=== PATIENT | male | born 1970 | race Caucasian/White ===

== ENCOUNTER 2016-12-08 11:15 | Inpatient (IN) | payer MEDICAID, OTHER ==
[2016-12-08 11:16] VITALS: BMI 37.8
[2016-12-08] MEDS ORDERED: Albuterol-Ipratrop 3 mg / 0.5 (3 ml) UD INH STA (12:19)
--- NOTE | 2016-12-08 12:22 | C.PDOC ---
History Of Present Illness 46 year old male, whose PMHx includes Anxiety, Bipolar Disorder and Depression, presents to the ED for psychiatric evaluation. Patient complains of worsening depression, racing thoughts, and higher anxiety levels than usual. Patient notes he has not been compliant with his medication and reports he has been having increased family problems. Patient reports he had suicidal ideation yesterday but denies such ideation today. Patient denies suicidal plan/ homicidal ideation and has no physical complaints at this time. Time Seen by Provider: 12/08/16 11:31 Chief Complaint (Nursing): Psychiatric Evaluation History Per: Patient History/Exam Limitations: no limitations Onset/Duration Of Symptoms: Hrs Current Symptoms Are (Timing): Still Present Suicide/Self Injury Attempted (Context): None Modifying Factor(s): None Associated Symptoms: Anxiety, Depression. denies: Suicidal Thoughts, Suicidal Plan Involuntary Hold By: None Recent travel outside of the [place]: No Additional History Per: Patient Past Medical History Reviewed: Historical Data, Nursing Documentation, Vital Signs Vital Signs: Last Vital Signs Temp 97.8 F 12/08/16 11:22 Pulse 105 H 12/08/16 11:22 Resp 20 12/08/16 11:22 BP 163/100 H 12/08/16 11:22 Pulse Ox 97 12/08/16 13:40 - Medical History PMH: Anxiety, Asthma (has home nebulizer machine), Bipolar Disorder, Depression , HTN, Sleep Apnea Surgical History: No Surg Hx - [facility] Procedures C-REINA EXC MAX SINUS LES (08/05/14) CLOSURE SKIN & SUBCUTANEOUS NEC (06/28/04) ETHMOIDECTOMY (08/05/14) NEBULIZER THERAPY (10/12/04) RADICAL MAXILLARY ANTROT (08/05/14) SPHENOIDECTOMY (08/05/14) TETANUS TOXOID ADMINIST (06/28/04) Family History: States: Unknown Family Hx - Social History Hx Alcohol Use: No Hx Substance Use: No - Immunization History Hx Tetanus Toxoid Vaccination: No Hx Influenza Vaccination: No Hx Pneumococcal Vaccination: No Review Of Systems Psych: Positive for: Anxiety, Depression. Negative for: Suicidal ideation Physical Exam - Physical Exam Appears: Non-toxic, No Acute Distress, Other (overweight, mildly anxious ) Skin: Normal Color, Warm, Dry Head: Atraumatic, Normacephalic Eye(s): bilateral: Normal Inspection Oral Mucosa: Moist Neck: Supple Chest: Symmetrical, No Deformity, No Tenderness Cardiovascular: Rhythm Regular, No Murmur Respiratory: No Rales, No Rhonchi, Wheezing (mild b/l expiratory wheezing in lower lungs [place] ) Extremity: Normal ROM, Capillary Refill (less than 2 seconds ) Neurological/Psych: Oriented x3, Normal Speech, Normal Cognition Gait: Steady ED Course And Treatment - Laboratory Results Result Diagrams: 12/08/16 12:29 12/08/16 12:29 O2 Sat by Pulse Oximetry: 97 (on RA ) Pulse Ox Interpretation: Normal Medical Decision Making Medical Decision Making: Progress: Bloodwork, urinalysis ordered and reviewed. Albuterol INH administered. Case discussed with stock worker and deliverer, who will evaluate patient at bedside. 137 pm pt medically cleared for psych eval. Disposition Discussed With Dr.: Carlos Holder Doctor Will See Patient In The: Hospital - Disposition Disposition Time: 13:39 Condition: STABLE - Clinical Impression Clinical Impression: Depression - PA / TOOL AND MACHINE MAINTAINER / Resident Statement MD/DO has reviewed & agrees with the documentation as recorded. - Scribe Statement The provider has reviewed the documentation as recorded by the Scribe (Savannah Patel) All medical record entries made by the Scribe were at my direction and personally dictated by me. I have reviewed the chart and agree that the record accurately reflects my personal performance of the history, physical exam, medical decision making, and the department course for this patient. I have also personally directed, reviewed, and agree with the discharge instructions and disposition. Decision To Admit - Pt Status Changed To: Hospital Disposition Of: Inpatient - Admit Certification Admit to Inpatient:: After my assessment, the patient will require hospitalization for at least two midnights. This is because of the severity of symptoms shown, intensity of services needed, and/or the medical risk in this patient being treated as an outpatient. - InPatient: Physician Admission Certification: I certify that this patient requires 2 or more midnights of care for the following reason:: psych eval - . Bed Request Type: Psychiatry Admitting Physician: Carlos Holder Patient Diagnosis: Depression
[2016-12-08 12:33] LABS: BASO # 0.1 K/uL (0.0-0.2); BASO % 0.9 % (0.0-2.0); EOS # 0.8 K/uL (0.0-0.7); EOS % 9.1 % (0.0-4.0); HEMATOCRIT 44.2 % (35.0-51.0); LYMPH # 2.1 K/uL (1.0-4.3); LYMPH % 23.7 % (20.0-40.0); MEAN CELL VOLUME 93.1 fL (80.0-94.0); MEAN CORPUSCULAR HEMOGLOBIN 31.2 pg (27.0-31.0); MEAN CORPUSCULAR HGB CONC 33.5 g/dL (33.0-37.0); MEAN PLATELET VOLUME 8.9 fL (7.2-11.7); MONO # 0.5 K/uL (0.0-0.8); MONO % 5.9 % (0.0-10.0); NRBC % 0.1 % (0.0-2.0); RED CELL DISTRIBUTION WIDTH 13.4 % (11.5-14.5)
[2016-12-08 12:37] LABS: RBC URINE 3 /hpf (0-3); URINE BILIRUBIN NEGATIVE (NEGATIVE); URINE BLOOD NEGATIVE (NEGATIVE); URINE COLOR Yellow (YELLOW); URINE GLUCOSE (UA) NORMAL (Normal); URINE KETONE NEGATIVE (NEGATIVE); URINE LEUKOCYTE ESTERASE NEG Leu/uL (Negative); URINE PROTEIN 1+ mg/dL (NEGATIVE); WBC URINE 1 /hpf (0-5)
[2016-12-08 12:43] LABS: CHLORIDE 100 mmol/L (98-107)
[2016-12-08 12:44] LABS: POTASSIUM 3.5 mmol/L (3.6-5.2); SODIUM 140 mmol/L (132-148)
[2016-12-08 12:46] LABS: ALB/GLOB RATIO 1.1 (1.0-2.1); ALKALINE PHOSPHATASE 89 U/L (38-126); AST/SGOT 18 U/L (17-59); BILIRUBIN,TOTAL 0.6 mg/dL (0.2-1.3); BLOOD UREA NITROGEN 14 mg/dL (9-20); CARBON DIOXIDE 26 mmol/L (22-30); GFR AFRICAN-AMERICAN > 60; TOTAL PROTEIN 8.3 g/dL (6.3-8.3)
[2016-12-08 12:47] LABS: ALCOHOL SERUM < 10 mg/dl (0-10); ALT/SGPT 17 U/L (21-72); CALCIUM 9.3 mg/dl (8.6-10.4); GLUCOSE,RANDOM 131 mg/dL (75-110)
[2016-12-08] MEDS ORDERED: Albuterol-Ipratrop 3 mg / 0.5 (3 ml) UD ONE (13:11)
[2016-12-08] MEDS ORDERED: Albuterol-Ipratrop 20 mcg/actuation (4 g) INH PRN (14:59)
[2016-12-08] MEDS: Divalproex 500 mg DR Tab PO SCH (17:27)
[2016-12-08] MEDS: Albuterol HFA 90 mcg/actuation (8 g) INH PRN (18:15)
--- NOTE | 2016-12-08 18:42 | PCM.BM ---
<Margarito Roque - Last Filed: 12/08/16 18:40> Treatment Plan Problems - Problems identified on initial assessmt Depression Date Initiated: 12/08/16 Time Initiated: 14:45 Assessment reference: NA Status: Active Treatment assets and liabiliti Patient Assests: ADL independent, good interpersonal skills Patient Liabilities: relationship conflicts (Angry at past relationships), substance abuse, medical problems - Milieu Protocol Maintain good personal hygiene: daily Encourage regular showers, daily Remind patient to perform daily oral care Maintain personal safety: every shift Educate patient to report safety concerns to staff, every shift Monitor environment for contraband/sharps Medication safety: Monitor for expected outcome, potential side effects: every shift, Assess barriers to learning: every shift, Assess readiness for medication education: every shift <Davida Solis - Last Filed: 12/09/16 11:24> Family Contact Family involvement: Family/SO is involved Family contact: Patient declines to allow family contact at present - Goals for Treatment Patient goals for treatment: "I want to go to the [facility]" Discharge/Continuing Care - Education Needs Education Needs: Patient Medication, Patient Coping Skills - Discharge Discharge Criteria: Tolerates medication w/o severe side effects, Reduction of target symptoms Discharge to:: Home - Treatment Team Participation Discussed with Family/SO: Yes Was Patient/Family/SO present at Treatment Team Meeting: Yes <Carlos Holder - Last Filed: 12/09/16 17:05> - Diagnosis (1) Bipolar 1 disorder, depressed Status: Acute Interventions: Assess/at just medications daily and/or as needed See patient on and individual [id number] per week to assess status of hallucinations and delusions Discussed risks, benefits, side effects and alternatives of medications. 12/09/16 17:04 (2) Opiate abuse, episodic Status: Acute Interventions: Assess 7x/week regarding severity of withdrawal Educated regarding risks, benefits, side effects and alternatives of medications Used motivational interview for abstinence Used CBT for relapse prevention Medication management for withdrawal symptoms Encouraged medication assisted treatment 12/09/16 17:05
[2016-12-09] MEDS: Albuterol HFA 90 mcg/actuation (8 g) INH PRN ×3 (00:36→17:46)
[2016-12-09] MEDS: Divalproex 500 mg DR Tab PO SCH ×2 (10:11→17:45)
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
[2016-12-10] MEDS: Albuterol HFA 90 mcg/actuation (8 g) INH PRN (03:23)
[2016-12-10] MEDS: Albuterol-Ipratrop 20 mcg/actuation (4 g) INH SCH ×3 (08:24→19:44)
[2016-12-10] MEDS: Divalproex 500 mg DR Tab PO SCH ×2 (09:24→17:19)
--- NOTE | 2016-12-10 12:35 | PCM.PYCHPN ---
Psychiatric Progress Note - Psychiatric Progress Note Patient seen today, length of contact: 15 minutes Patient Chief Complaint: I'm feeling little better Problems Identified/Issues Discussed: Patient seen. Chart reviewed. Case discussed with the staff. Issues related to illness and treatment were discussed with the patient. Reported compliant with treatment with no adverse affects. Tolerating treatment very well. Reported feeling little better with the treatment. Aftercare discussed with the patient At the time of evaluation, patient was awake alert oriented 3, no delusions, no auditory visual hallucinations, no suicidal ideations or homicidal ideations, Medical Problems: Hypertension Asthma Insomnia Sleep apnea Diagnostic Results: Reviewed DSM 5 Symptoms Update: Some improvement with treatment Medication Change: No Medical Record Reviewed: Yes Mental Status Examination - Cognitive Function Orientation: Person, Place, Situation, Time Memory: Intact Attention: WNL Concentration: WNL Association: WNL Fund of Knowledge: [facility] Decription of patient's judgement and insights: Fair - Mood Mood: Depressed - Affect Affect: Depressed - Speech Speech: Appropriate - Formal Thought Process Formal Thought Process: No Impairment Psychotic Thoughts and Behaviors: None - Suicidal Ideation Suicidal Ideation: No - Homicidal Ideation Homicidal Ideation: No Goal/Treatment Plan - Goal/Treatment Plan Need for Continued Stay: Remain at risks for inpatient hospitalization, Discharge may exacerbated symptoms, Severe functional impairment Progress Toward Problem(s) and Goals/Treatment Plan: Patient education Supportive therapy Continue treatment as before Estimated Date of D/C: 12/16/16 - Smoking Cessation Smoking Cessation Initiated: No
[2016-12-10] MEDS ORDERED: Aluminum Hydroxide/Magnesium Hydroxide Susp (30 mL) PO PRN (22:25)
[2016-12-11] MEDS: Albuterol-Ipratrop 20 mcg/actuation (4 g) INH SCH ×4 (02:00→19:38)
[2016-12-11] MEDS: Albuterol HFA 90 mcg/actuation (8 g) INH PRN ×2 (04:56→23:46)
[2016-12-11] MEDS: Divalproex 500 mg DR Tab PO SCH ×2 (09:35→17:39)
--- NOTE | 2016-12-11 13:45 | PCM.PYCHPN ---
Psychiatric Progress Note - Psychiatric Progress Note Patient seen today, length of contact: 15 minutes Patient Chief Complaint: I'm feeling better Problems Identified/Issues Discussed: Patient seen. Chart reviewed. Case discussed with the staff. Issues related to illness and treatment were discussed with the patient. Reported compliant with treatment with no adverse affects. Tolerating treatment very well. Reported feeling better with the treatment. Has better sleep and better mood. Aftercare discussed with the patient At the time of evaluation, patient was awake alert oriented 3, no delusions, no auditory visual hallucinations, no suicidal ideations or homicidal ideations, Medical Problems: Hypertension Asthma Insomnia Sleep apnea Diagnostic Results: Reviewed DSM 5 Symptoms Update: Improving with treatment Medication Change: No Medical Record Reviewed: Yes Mental Status Examination - Cognitive Function Orientation: Person, Place, Situation, Time Memory: Intact Attention: WNL Concentration: WNL Association: WNL Fund of Knowledge: [facility] Decription of patient's judgement and insights: Fair - Mood Mood: Depressed (Less than before) - Affect Affect: Depressed - Speech Speech: Appropriate - Formal Thought Process Formal Thought Process: No Impairment Psychotic Thoughts and Behaviors: None - Suicidal Ideation Suicidal Ideation: No - Homicidal Ideation Homicidal Ideation: No Goal/Treatment Plan - Goal/Treatment Plan Need for Continued Stay: Remain at risks for inpatient hospitalization, Discharge may exacerbated symptoms, Severe functional impairment Progress Toward Problem(s) and Goals/Treatment Plan: Patient education Supportive therapy Continue treatment as before Estimated Date of D/C: 12/16/16 - Smoking Cessation Smoking Cessation Initiated: No
[2016-12-12] MEDS: Albuterol-Ipratrop 20 mcg/actuation (4 g) INH SCH ×4 (02:19→19:10)
[2016-12-12] MEDS: Albuterol HFA 90 mcg/actuation (8 g) INH PRN ×3 (05:18→18:50)
[2016-12-12] MEDS: Divalproex 500 mg DR Tab PO SCH ×2 (09:44→17:48)
--- NOTE | 2016-12-12 14:45 | PCM.PYCHPN ---
Psychiatric Progress Note - Psychiatric Progress Note Patient seen today, length of contact: 15 minutes Patient Chief Complaint: "I'm feeling better!" Problems Identified/Issues Discussed: Pt is seen, chart reviewed, case discussed with staff. Pt is compliant with medications and reports no side effects. Pt slept wel last night and currently reports to feel well. He reports of some anxiety, though less than before. He denies racing thoughts. Symptoms are improving but pt needs more time to stabilize. Support and psychoeducation given, CBT and CT used briefly. After care discussed. Will work with SW. Medication Change: No Medical Record Reviewed: Yes Mental Status Examination - Cognitive Function Orientation: Person, Place, Situation, Time Memory: Intact Attention: WNL Concentration: WNL Association: WNL Fund of Knowledge: WNL - Mood Mood: Anxious - Affect Affect: Broad - Speech Speech: Appropriate - Formal Thought Process Formal Thought Process: No Impairment - Suicidal Ideation Suicidal Ideation: No - Homicidal Ideation Homicidal Ideation: No Goal/Treatment Plan - Goal/Treatment Plan Need for Continued Stay: Remain at risks for inpatient hospitalization, Discharge may exacerbated symptoms, Severe functional impairment Progress Toward Problem(s) and Goals/Treatment Plan: Continue medications as prescribed Supportive therapy and psychoeducation Attend groups and activities Attend self-help groups Refer to after care Estimated Date of D/C: 12/16/16
[2016-12-13] MEDS: Albuterol HFA 90 mcg/actuation (8 g) INH PRN ×3 (00:42→22:53)
[2016-12-13 07:20] VITALS: TEMP 98.1; O2SAT 97
[2016-12-13] MEDS: Albuterol-Ipratrop 20 mcg/actuation (4 g) INH SCH ×4 (08:23→19:07)
[2016-12-13] MEDS: Divalproex 500 mg DR Tab PO SCH ×2 (09:47→17:40)
--- NOTE | 2016-12-13 10:45 | PCM.PYCHPN ---
Psychiatric Progress Note - Psychiatric Progress Note Patient seen today, length of contact: 16 minutes Patient Chief Complaint: "I feel good!" Problems Identified/Issues Discussed: Pt is seen, chart reviewed, case discussed with staff. Pt is compliant with medications and reports no side effects. He is in a pleasant mood and states that he is feeling much more calm. He has no complaints other than some difficulty sleeping. Symptoms are improving but pt needs more time to stabilize. Support and psychoeducation given, CBT and NM used briefly. After care discussed. Will work with SW. Medication Change: No Medical Record Reviewed: Yes Mental Status Examination - Cognitive Function Orientation: Person, Place, Situation, Time Memory: Intact Attention: WNL Concentration: WNL Association: WNL Fund of Knowledge: WNL - Mood Mood: Neutral - Affect Affect: Broad - Speech Speech: Appropriate - Formal Thought Process Formal Thought Process: No Impairment - Suicidal Ideation Suicidal Ideation: No - Homicidal Ideation Homicidal Ideation: No Goal/Treatment Plan - Goal/Treatment Plan Need for Continued Stay: Remain at risks for inpatient hospitalization, Discharge may exacerbated symptoms, Severe functional impairment Progress Toward Problem(s) and Goals/Treatment Plan: Continue medications as prescribed Supportive therapy and psychoeducation Attend groups and activities Attend self-help groups Refer to after care Estimated Date of D/C: 12/16/16
[2016-12-14] MEDS: Albuterol-Ipratrop 20 mcg/actuation (4 g) INH SCH ×2 (02:15→08:45)
[2016-12-14 07:22] VITALS: BP 112/79; PULSE 105; RESP 18
[2016-12-14] MEDS: Divalproex 500 mg DR Tab PO SCH (09:59)
--- NOTE | 2016-12-14 12:19 | PCM.PYCHDC ---
Mental Status Examination - Mental Status Examination Orientation: Person, Place, Situation, Time Memory: Intact Mood: Neutral Affect: Constricted Speech: Soft Attention: WNL Concentration: WNL Association: WNL Fund of Knowledge: WNL Formal Thought Process: No Impairment Description of patient's judgement and insight: good, fair Psychotic Thoughts and Behaviors: denies any AVH Suicidal Ideation: No Current Homicidal Ideation?: No Discharge Summary - Discharge Note Reason for Hospitalization: Patient is a 46 years old, , unemployed, on SSI, male with history of bipolar disorder since 2009, was admitted due to worsening symptoms of depression. Patient reported he was following up at [facility], outpatient and was taking Depakote, 250 mg twice a day. He stopped taking medication about one week ago for personal reasons. Started feeling depressed, decreased sleep, decreased appetite but gained weight. Patient has history of suicidal ideations in the past. History of one previous suicidal attempt, in 1993 by overdose on medications. Patient was admitted in the hospital at that time. History of 3 previous inpatient psychiatric admissions. Denied any psychotic, anxiety or manic symptoms. History of manic symptoms in the past. Reported history of heroin use, started in 1992, increased gradually up to 15 bags daily, snorting. His last use reported in 2007. Longest period of abstinence 3 years, from [id number]. He completely stopped using heroin in 2010. Relapsed again 2 days ago, used one bag. 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 Dates unknown. Denied use of any other drugs including alcohol, cocaine or cannabis. Doesn't smoke cigarettes. Patient was incarcerated for 3 years, from [id number]. He was born in [place]. Has high school graduation, not working. On SSI. Lives with . Has 5 grown up children. His height is 5 feet 6 inches and weight is 232 pounds. Consultations:: List each consultation separately and include: 1. Reason for request. 2. Findings. 3. Follow-up Summary of Hospital Course include:: 1. Description of specific treatment plan utilized for patients during their course of treatmen. 2. Summarize the time- course for resolution of acute symptoms and/or regressed behaviors. 3. Describe issues identified and worked on during hospitalization. 4. Describe medication utilized. 5. Describe medical problems identified and treated. 6. Reassessment of suicide risk - Final Diagnosis (DSM 5) Condition upon Discharge: STABLE DSM 5: Bipolar 1 disorder most recent episode depressed Opiate use disorder Disposition: HOME/ ROUTINE Follow-up Treatment Plan: Continue medications as prescribed Supportive therapy and psychoeducation Attend groups and activities Attend self-help groups Refer to after care Prescriptions/Medication Reconciliation: Divalproex [Depakote DR] 500 mg PO BID #60 tcp traZODone [Desyrel] 50 mg PO HS #30 tab
[2016-12-14] MEDS: Albuterol HFA 90 mcg/actuation (8 g) INH PRN (13:16)
== END 2016-12-14 14:20 | disposition home or self-care (01) | DRG 430 ==
LOC: C.ER 11:15 → C.5E 13:38
PROC: GZ3ZZZZ Medication Management (ICD-10-PCS; principal; 2016-12-08)
PROC: GZHZZZZ Group Psychotherapy (ICD-10-PCS; 2016-12-08)
PROC: GZ56ZZZ Individual Psychotherapy, Supportive (ICD-10-PCS; 2016-12-08)
PROC: HZ59ZZZ Individual Psychotherapy for Substance Abuse Treatment, Supportive (ICD-10-PCS; 2016-12-08)
DX: F31.30 Bipolar disorder, current episode depressed, mild or moderate severity, unspecified (principal); R45.851 Suicidal ideations; F11.10 Opioid abuse, uncomplicated; F41.9 Anxiety disorder, unspecified; G47.00 Insomnia, unspecified; Z91.14 Patient's other noncompliance with medication regimen; I10 Essential (primary) hypertension; G47.30 Sleep apnea, unspecified; J45.909 Unspecified asthma, uncomplicated; Z62.810 Personal history of physical and sexual abuse in childhood